=== PATIENT | male | born 1935 | race Caucasian/White ===

== ENCOUNTER 2017-10-22 13:09 | Emergency (ER) | payer MEDICARE, MEDICAID ==
[~2017-10-22] VITALS: Ht 162.6 cm; Wt 70.0 kg
[~2017-10-22 13:09] MED LIST: ASPI-107 PO; GLUC1KIT3 IJ; ISOS5TAB3 PO; LACT10SO PO; LANTUS SQ; MEMA10TA PO; MUPI22OI30 TP; NITR0.4T51 SL; SYN0.1T PO
[2017-10-22] MEDS ORDERED: ondansetron/PF 4mg/2ml inj IV ONE (13:50)
[2017-10-22] MEDS ORDERED: ibuprofen tablet 400 MG TABLET PO ONE (13:50)
[2017-10-22] MEDS ORDERED: normal saline 1000ML IV soln IVB ONE (13:50)
[2017-10-22 14:15] LABS: BASOPHILS % (AUTO) 0.3 % (0-1); EOSINOPHILS # (AUTO) 0.1 X10'3 (0-0.9); EOSINOPHILS % (AUTO) 1.2 % (0-6); HEMATOCRIT 36.1 % (42.0-52.0); HEMOGLOBIN 12.1 g/dl (14.0-17.9); LYMPHOCYTES % (AUTO) 17.6 % (21-51); MEAN CORPUSCULAR HEMOGLOBIN 29.1 PG (27.0-31.0); MEAN CORPUSCULAR HGB CONC 33.6 % (33.0-36.5); MEAN CORPUSCULAR VOLUME 86.7 FL (78-98); MEAN PLATELET VOLUME 9.3 FL (7.4-10.4); MONOCYTES # (AUTO) 0.4 X10'3 (0-0.9); MONOCYTES % (AUTO) 6.4 % (2-12); NEUTROPHILS # (AUTO) 4.4 X10'3 (1.8-7.7); NEUTROPHILS % (AUTO) 74.5 % (42-75); PLATELET COUNT 137 X10'3 (140-440); RED BLOOD COUNT 4.16 X10'6 (4.70-6.10); RED CELL DISTRIBUTION WIDTH 14.3 % (11.5-14.5); WHITE BLOOD COUNT 5.9 X10'3 (4.5-11.0)
[2017-10-22 14:31] LABS: ALANINE AMINOTRANSFERASE 26 U/L (12-78); ALBUMIN 3.6 G/DL (3.4-5.0); ALBUMIN/GLOBULIN RATIO 0.9 (1.1-1.5); ALKALINE PHOSPHATASE 91 IU/L (46-116); ANION GAP 6 (8-16); ASPARTATE AMINO TRANSFERASE 24 U/L (10-37); BILIRUBIN,TOTAL 0.6 MG/DL (0.1-1.0); BLOOD UREA NITROGEN 27 MG/DL (7-18); BUN/CREATININE RATIO 24.3 (5.4-32.0); CHLORIDE 101 MMOL/L (99-107); CREATININE 1.11 MG/DL (0.60-1.10); GLUCOSE 342 MG/DL (70-104); LIPASE 100 U/L (73-393); POTASSIUM 4.6 MMOL/L (3.5-5.1); SODIUM 138 MMOL/L (135-145); TOTAL CARBON DIOXIDE 31.4 MMOL/L (24-32); TOTAL PROTEIN 7.4 G/DL (6.4-8.2); eGFR 63 ML/MIN
[2017-10-22 15:00] VITALS: BP 137/83
[2017-11-04] MEDS ORDERED: HYDR-3972 PO (06:06)
[2017-11-04] MEDS ORDERED: ASPI-41 PO (06:11)
== END 2017-10-22 15:00 | disposition home or self-care (01) ==
LOC: ER 13:10
DX: R07.89 Other chest pain (principal); I25.10 Atherosclerotic heart disease of native coronary artery without angina pectoris; I10 Essential (primary) hypertension; E11.9 Type 2 diabetes mellitus without complications; Z87.891 Personal history of nicotine dependence; Z95.5 Presence of coronary angioplasty implant and graft; Z79.82 Long term (current) use of aspirin; Z79.4 Long term (current) use of insulin; Z79.899 Other long term (current) drug therapy
CPT/HCPCS: 36415; 71010; 80053; 83690; 84484; 85025; 93005; 96361; 96374; 99285; J2405

== ENCOUNTER 2018-05-10 15:31 | Emergency (ER) | payer MEDICARE, MEDICAID ==
[~2018-05-10] VITALS: Ht 170.2 cm; Wt 83.6 kg
[~2018-05-10 15:31] MED LIST changes: +HYDR-3972 PO
[2018-05-10] MEDS ORDERED: BUPIVAcaine 0.5% inj/PF 30 ml vial IJ ONE (16:25)
[2018-05-10 16:28] LABS: BASOPHILS # (AUTO) 0.1 X10'3 (0-0.2); BASOPHILS % (AUTO) 1.2 % (0-1); EOSINOPHILS % (AUTO) 0.2 % (0-6); HEMATOCRIT 32.2 % (42.0-52.0); HEMOGLOBIN 11.2 g/dl (14.0-17.9); LYMPHOCYTES # (AUTO) 0.7 X10'3 (1.1-4.8); LYMPHOCYTES % (AUTO) 14.3 % (21-51); MEAN CORPUSCULAR HEMOGLOBIN 29.9 PG (27.0-31.0); MEAN CORPUSCULAR HGB CONC 34.6 % (33.0-36.5); MEAN CORPUSCULAR VOLUME 86.5 FL (78-98); MEAN PLATELET VOLUME 9.2 FL (7.4-10.4); MONOCYTES # (AUTO) 0.3 X10'3 (0-0.9); NEUTROPHILS # (AUTO) 3.8 X10'3 (1.8-7.7); NEUTROPHILS % (AUTO) 77.3 % (42-75); PLATELET COUNT 119 X10'3 (140-440); RED BLOOD COUNT 3.73 X10'6 (4.70-6.10); RED CELL DISTRIBUTION WIDTH 15.2 % (11.5-14.5); WHITE BLOOD COUNT 4.9 X10'3 (4.5-11.0)
[2018-05-10] MEDS ORDERED: acetaminophen 325mg tablet PO ONE (16:30)
[2018-05-10] MEDS ORDERED: BUPIVAcaine/PF 2.5 mg/ml (0.25%) 30ml vial IJ ONE (16:30)
[2018-05-10 16:41] LABS: ALANINE AMINOTRANSFERASE 18 U/L (12-78); ALBUMIN 3.2 G/DL (3.4-5.0); ALBUMIN/GLOBULIN RATIO 0.9 (1.1-1.5); ALKALINE PHOSPHATASE 71 IU/L (46-116); ANION GAP 8 (8-16); ASPARTATE AMINO TRANSFERASE 20 U/L (10-37); BILIRUBIN,TOTAL 0.7 MG/DL (0.1-1.0); BLOOD UREA NITROGEN 24 MG/DL (7-18); CALCIUM 8.9 MG/DL (8.5-10.1); CHLORIDE 102 MMOL/L (99-107); CREATININE 0.96 MG/DL (0.60-1.10); GLUCOSE 279 MG/DL (70-104); POTASSIUM 4.2 MMOL/L (3.5-5.1); SODIUM 138 MMOL/L (135-145); TOTAL CARBON DIOXIDE 28.5 MMOL/L (24-32); TOTAL PROTEIN 6.6 G/DL (6.4-8.2); eGFR 75 ML/MIN
[2018-05-10] MEDS ORDERED: LIDOcaine 1% 30ml preserv. free vial IJ ONE (16:45)
[2018-05-10] MEDS ORDERED: INSU100I31 (17:02)
[2018-05-10] MEDS ORDERED: LIDOcaine 1%/PF 5ML 10 MG/ML VIAL IJ ONE ×2 (17:20→19:30)
[2018-05-10 17:27] LABS: CLARITY,URINE CLEAR (Clear); COLOR,URINE YELLOW (Yellow); GLUCOSE, URINE >=1000 mg/dl (Neg); KETONES,URINE NEGATIVE (Neg); LEUKOCYTE ESTERASE ,URINE NEGATIVE (Neg); NITRITES, URINE NEGATIVE (Neg); OCCULT BLOOD,URINE TRACE-INTACT (Neg); PH,URINE 5.5 (4.8-8.0); PROTEIN,URINE TRACE mg/dl (Neg); UA COLLECTION TYPE CLN CATCH MIDSTREAM
[2018-05-10 17:29] LABS: BACTERIA,URINE NONE SEEN /HPF (Neg); RBC,URINE NONE SEEN /HPF (0-2); SQUAMOUS EPITHELIAL CELL,UR FEW /LPF (FEW); WBC,URINE 0-4 /HPF (0-4)
[2018-05-10] MEDS ORDERED: TETanus/Pertussis (Acell)/Diphther VAC/PF (Tdap-Adult) 0.5ml syringe IMVAC ONE (20:10)
[2018-05-10 20:28] VITALS: BP 132/86
== END 2018-05-10 20:40 | disposition home or self-care (01) ==
LOC: ER 15:32
DX: S01.81XA Laceration without foreign body of other part of head, initial encounter (principal); S51.812A Laceration without foreign body of left forearm, initial encounter; I25.10 Atherosclerotic heart disease of native coronary artery without angina pectoris; I10 Essential (primary) hypertension; E11.9 Type 2 diabetes mellitus without complications; F03.90 Unspecified dementia, unspecified severity, without behavioral disturbance, psychotic disturbance, mood disturbance, and anxiety; Z98.61 Coronary angioplasty status; Z79.4 Long term (current) use of insulin; Z79.899 Other long term (current) drug therapy; W22.8XXA Striking against or struck by other objects, initial encounter; Y93.89 Activity, other specified; Y92.89 Other specified places as the place of occurrence of the external cause; Y99.8 Other external cause status
CPT/HCPCS: 12015; 36415; 70450; 70486; 72125; 80053; 81001; 82948; 85025; 90471; 90715; 93005; 99285; A6449; J2001; J3490

== ENCOUNTER 2019-08-27 08:02 | Emergency (ER) | payer MEDICARE, MEDICAID ==
[~2019-08-27] VITALS: Ht 175.3 cm; Wt 65.9 kg
[~2019-08-27 08:02] MED LIST changes: -ASPI-107 PO; -HYDR-3972 PO; +INSU100I31; -ISOS5TAB3 PO; -LACT10SO PO; -MUPI22OI30 TP
[2019-08-27] MEDS ORDERED: TETanus/Pertussis (Acell)/Diphther VAC/PF (Tdap-Adult) 0.5ml syringe IM ONE (08:20)
[2019-08-27 09:08] LABS: BASOPHILS % (AUTO) 0.6 % (0-1); EOSINOPHILS % (AUTO) 0.2 % (0-6); HEMATOCRIT 41.1 % (42.0-52.0); HEMOGLOBIN 14.1 g/dl (14.0-17.9); LYMPHOCYTES # (AUTO) 0.7 X10'3 (1.1-4.8); LYMPHOCYTES % (AUTO) 14.1 % (21-51); MEAN CORPUSCULAR HEMOGLOBIN 30.1 PG (27.0-31.0); MEAN CORPUSCULAR HGB CONC 34.4 g/dL (33.0-36.5); MEAN CORPUSCULAR VOLUME 87.4 FL (78-98); MEAN PLATELET VOLUME 9.3 FL (7.4-10.4); MONOCYTES # (AUTO) 0.4 X10'3 (0-0.9); MONOCYTES % (AUTO) 7.7 % (2-12); NEUTROPHILS # (AUTO) 3.9 X10'3 (1.8-7.7); NEUTROPHILS % (AUTO) 77.4 % (42-75); PLATELET COUNT 156 X10'3 (140-440); RED CELL DISTRIBUTION WIDTH 15.4 % (11.5-14.5); WHITE BLOOD COUNT 5.1 X10'3 (4.5-11.0)
[2019-08-27 09:20] LABS: PARTIAL THROMBOPLASTIN TIME 27 SECONDS (22-32)
[2019-08-27 09:46] LABS: ALANINE AMINOTRANSFERASE 23 U/L (12-78); ALBUMIN 3.7 G/DL (3.4-5.0); ALBUMIN/GLOBULIN RATIO 0.9 (1.1-1.5); ALKALINE PHOSPHATASE 63 IU/L (46-116); ANION GAP 7 (8-16); ASPARTATE AMINO TRANSFERASE 25 U/L (10-37); BLOOD UREA NITROGEN 20 MG/DL (7-18); BUN/CREATININE RATIO 25.6 (5.4-32.0); CALCIUM 9.2 MG/DL (8.5-10.1); CHLORIDE 105 MMOL/L (99-107); CREATININE 0.78 MG/DL (0.60-1.10); GLUCOSE 141 MG/DL (70-104); MAGNESIUM 2.1 MG/DL (1.5-2.4); POTASSIUM 3.9 MMOL/L (3.5-5.1); SODIUM 142 MMOL/L (135-145); TOTAL CARBON DIOXIDE 30.1 MMOL/L (24-32); TOTAL PROTEIN 7.6 G/DL (6.4-8.2); eGFR > 90 ML/MIN
[2019-08-27 09:47] LABS: CLARITY,URINE CLEAR (Clear); GLUCOSE, URINE >=1000 mg/dl (Neg); LEUKOCYTE ESTERASE ,URINE NEGATIVE (Neg); NITRITES, URINE NEGATIVE (Neg); OCCULT BLOOD,URINE NEGATIVE (Neg); PROTEIN,URINE NEGATIVE (Neg); UROBILINOGEN,URINE 0.2 E.U/dL (0.2-1.0)
[2019-08-27] MEDS ORDERED: mupirocin 2% ointment 22GM TP STA (09:53)
[2019-08-27 09:57] LABS: COLOR,URINE YELLOW (Yellow); KETONES,URINE NEGATIVE (Neg); PH,URINE 6.5 (4.8-8.0)
[2019-08-27 10:06] LABS: UA COLLECTION TYPE VOIDED
[2019-08-27 10:15] LABS: BACTERIA,URINE NONE SEEN /HPF (Neg); RBC,URINE NONE SEEN /HPF (0-2); SQUAMOUS EPITHELIAL CELL,UR NONE SEEN /LPF (FEW); WBC,URINE 0-4 /HPF (0-4)
[2019-08-27 11:48] VITALS: BP 155/78
== END 2019-08-27 11:50 | disposition home or self-care (01) ==
LOC: ER 08:03
DX: S01.111A Laceration without foreign body of right eyelid and periocular area, initial encounter (principal); S51.011A Laceration without foreign body of right elbow, initial encounter; E11.649 Type 2 diabetes mellitus with hypoglycemia without coma; R00.1 Bradycardia, unspecified; R79.1 Abnormal coagulation profile; F03.90 Unspecified dementia, unspecified severity, without behavioral disturbance, psychotic disturbance, mood disturbance, and anxiety; I25.10 Atherosclerotic heart disease of native coronary artery without angina pectoris; I10 Essential (primary) hypertension; Z79.899 Other long term (current) drug therapy; Z79.4 Long term (current) use of insulin; Z95.5 Presence of coronary angioplasty implant and graft; Z98.890 Other specified postprocedural states; W18.39XA Other fall on same level, initial encounter; Y93.89 Activity, other specified; Y92.89 Other specified places as the place of occurrence of the external cause; Y99.8 Other external cause status
CPT/HCPCS: 36415; 70450; 71045; 80053; 81001; 82948; 83605; 83735; 84145; 84484; 85025; 85610; 85730; 87040; 90471; 93005; 99284

== ENCOUNTER 2019-12-05 18:55 | Inpatient (IN) | payer MEDICARE, MEDICAID ==
[~2019-12-05] VITALS: Ht 170.2 cm; Wt 58.8 kg
--- NOTE | 2019-12-05 19:31 | NUR ---
family at bedside - they state pt has had slow and slurred speech for over a month but it has become worse over past 3 days. they also state that pt is being followed by a journeyman pipefitter for a foot infection and that is what he is on Cipro for.
[2019-12-05] MEDS ORDERED: LEVO150T8 PO (19:45)
[2019-12-05] MEDS ORDERED: EMPA25TA PO (19:45)
[2019-12-05] MEDS ORDERED: CIPR500T5 PO (19:45)
[2019-12-05 19:46] LABS: HEMATOCRIT 42.9 % (42.0-52.0); HEMOGLOBIN 14.3 g/dl (14.0-17.9); MEAN CORPUSCULAR VOLUME 92.8 FL (78-98)
--- NOTE | 2019-12-05 19:46 | NUR ---
Khris [phone] son and daughter-in law - pt resides with them.
[2019-12-05 19:48] LABS: BASOPHILS % (AUTO) 0.6 % (0-1); EOSINOPHILS % (AUTO) 0.1 % (0-6); LYMPHOCYTES # (AUTO) 1.3 X10'3 (1.1-4.8); LYMPHOCYTES % (AUTO) 17.4 % (21-51); MEAN CORPUSCULAR HEMOGLOBIN 30.9 PG (27.0-31.0); MEAN CORPUSCULAR HGB CONC 33.3 g/dL (33.0-36.5); MEAN PLATELET VOLUME 8.9 FL (7.4-10.4); MONOCYTES # (AUTO) 0.4 X10'3 (0-0.9); NEUTROPHILS # (AUTO) 5.6 X10'3 (1.8-7.7); NEUTROPHILS % (AUTO) 76.9 % (42-75); PLATELET COUNT 195 X10'3 (140-440); RED BLOOD COUNT 4.63 X10'6 (4.70-6.10); RED CELL DISTRIBUTION WIDTH 16.1 % (11.5-14.5); WHITE BLOOD COUNT 7.3 X10'3 (4.5-11.0)
--- NOTE | 2019-12-05 20:01 | NUR ---
pt back from [place] - family states slow decline since his fall about 1.5 mos ago (pt was seen here for that event). pt normally ambulates with walker and is able to do own ADL's with minimal assist. For the past 2 days this has not been possible and pt has needed almost full care. pt also has had decrease in appetite.
[2019-12-05 20:13] LABS: ALANINE AMINOTRANSFERASE 29 U/L (12-78); ALBUMIN 3.6 G/DL (3.4-5.0); ALBUMIN/GLOBULIN RATIO 0.9 (1.1-1.5); ALKALINE PHOSPHATASE 129 IU/L (46-116); ANION GAP 28 (8-16); ASPARTATE AMINO TRANSFERASE 35 U/L (10-37); BLOOD UREA NITROGEN 37 MG/DL (7-18); BUN/CREATININE RATIO 27.2 (5.4-32.0); CALCIUM 9.2 MG/DL (8.5-10.1); CHLORIDE 103 MMOL/L (99-107); CREATININE 1.36 MG/DL (0.60-1.10); GLUCOSE 321 MG/DL (70-104); POTASSIUM 4.2 MMOL/L (3.5-5.1); SODIUM 147 MMOL/L (135-145); TOTAL CARBON DIOXIDE 16.5 MMOL/L (24-32); TOTAL PROTEIN 7.8 G/DL (6.4-8.2); eGFR 50 ML/MIN
[2019-12-05] MEDS ORDERED: normal saline 1000ML IV soln IVB ONE (20:15)
[2019-12-05 20:22] LABS: CLARITY,URINE CLEAR (Clear); COLOR,URINE YELLOW (Yellow); GLUCOSE, URINE >=1000 mg/dl (Neg); KETONES,URINE >=80 mg/dl (Neg); LEUKOCYTE ESTERASE ,URINE NEGATIVE (Neg); NITRITES, URINE NEGATIVE (Neg); OCCULT BLOOD,URINE TRACE-INTACT (Neg); PH,URINE 5.5 (4.8-8.0); PROTEIN,URINE NEGATIVE (Neg); UROBILINOGEN,URINE 0.2 E.U/dL (0.2-1.0)
--- NOTE | 2019-12-05 20:38 | NUR ---
FAMILY UPDATED ON PLAN OF CARE - THEY ARE GOING HOME FOR THE NIGHT AND WILL RETURN IN MORNING. CONDOM CATH HAS BEEN PLACED ON PT TO MONITOR I\O - HE IS CURRENTLY GETTING IV FLUID BOLUS - BOTH CULTURES HAVE BEEN DRAWN
[2019-12-05 20:45] LABS: UA COLLECTION TYPE STRAIGHT CATH
[2019-12-05 20:48] LABS: BACTERIA,URINE NONE SEEN /HPF (Neg); RBC,URINE 0-2 /HPF (0-2); SQUAMOUS EPITHELIAL CELL,UR FEW /LPF (FEW); WBC,URINE 0-4 /HPF (0-4)
[2019-12-05] MEDS ORDERED: insulin regular, human 10 units/0.1 ml syringe SQ ONE (21:10)
[2019-12-05 21:24] LABS: CREATINE KINASE 480 U/L (39-308)
--- NOTE | 2019-12-05 21:30 | NUR ---
HOSPITALIST AT BEDSIDE FOR ADMISSION
[2019-12-05] MEDS: normal saline 1000ml 1,000 ML IV SCH (21:41)
[2019-12-05] MEDS ORDERED: acetaminophen 325mg tablet PO PRN (21:45)
[2019-12-05] MEDS ORDERED: insulin regular, human vial - multi-dose IV PRN (21:45)
[2019-12-05] MEDS ORDERED: mag hydrox/Alum hydrox/simeth 30ml oral suspension PO PRN (21:45)
[2019-12-05] MEDS ORDERED: potassium Cl 20 mEq SR tablet PO PRN (21:45)
[2019-12-05] MEDS ORDERED: magnesium hydroxide 30ml (MOM) UD suspension PO PRN (21:45)
[2019-12-05] MEDS ORDERED: ondansetron/PF 4mg/2ml inj IV PRN (21:45)
[2019-12-05] MEDS ORDERED: Insulin Reg/NS 100units/100mL 100 ML IV SCH (21:45)
[2019-12-05] MEDS ORDERED: dextrose 5%-1/2 normal saline 1,000 ML IV ONE (22:19)
[2019-12-05] MEDS ORDERED: insulin regular, human 10 units/0.1 ml syringe SQ STA (23:25)
[2019-12-05 23:26] LABS: TOTAL CELLS COUNTED 100
[2019-12-05 23:27] LABS: ANISOCYTOSIS 1+; PLATELET ESTIMATE NORMAL
--- NOTE | 2019-12-06 | NUR ---
received pt report from Rosalind GORDON RN, had the opportunity to ask questions. awaiting pt arrival to unit.
--- NOTE | 2019-12-06 00:05 | NUR ---
PT HASN'T HAD ANY URINE OUTPUT SINCE STRAIGHT CATH. BLADDER SCAN REVEALS 700ML URINE. TELEPHONE CALL TO [facility] AND ORDER REC'D FOR CHUA CATH -
[2019-12-06 00:30] VITALS: BP 125/60
[2019-12-06 00:50] LABS: ANION GAP 18 (8-16); BLOOD UREA NITROGEN 31 MG/DL (7-18); CHLORIDE 111 MMOL/L (99-107); CREATININE 1.35 MG/DL (0.60-1.10); GLUCOSE 175 MG/DL (70-104); POTASSIUM 3.7 MMOL/L (3.5-5.1); SODIUM 150 MMOL/L (135-145); TOTAL CARBON DIOXIDE 21.3 MMOL/L (24-32)
[2019-12-06 00:51] LABS: ALBUMIN 3.2 G/DL (3.4-5.0); CALCIUM 8.2 MG/DL (8.5-10.1); eGFR 50 ML/MIN
[2019-12-06] MEDS ORDERED: potassium CL 20mEq in D5-1/2NS 1,000 ML IV SCH (02:05)
[2019-12-06 04:04] LABS: ANION GAP 12 (8-16); BLOOD UREA NITROGEN 29 MG/DL (7-18); BUN/CREATININE RATIO 23.8 (5.4-32.0); CALCIUM 8.5 MG/DL (8.5-10.1); CHLORIDE 113 MMOL/L (99-107); CREATININE 1.22 MG/DL (0.60-1.10); GLUCOSE 99 MG/DL (70-104); POTASSIUM 3.5 MMOL/L (3.5-5.1); SODIUM 150 MMOL/L (135-145); eGFR 56 ML/MIN
--- NOTE | 2019-12-06 06:14 | NUR ---
Problems reprioritized. Patient report given, questions answered & plan of care reviewed with Leilani Eason RN.
--- NOTE | 2019-12-06 06:15 | NUR ---
Patient in room PCU 3024. I have received report from ALEJO Rodriguez and had the opportunity to ask questions and assume patient care. patient currently resting in bed, bed locked and low, call light in reach, no acute distress, D5 1/2NS w/20K running at 200ml/hr, insulin off, will continue to monitor.
[2019-12-06 06:51] LABS: BASOPHILS % (AUTO) 0.5 % (0-1); EOSINOPHILS % (AUTO) 0.5 % (0-6); HEMATOCRIT 36.8 % (42.0-52.0); HEMOGLOBIN 12.7 g/dl (14.0-17.9); LYMPHOCYTES # (AUTO) 1.2 X10'3 (1.1-4.8); LYMPHOCYTES % (AUTO) 16.9 % (21-51); MEAN CORPUSCULAR HEMOGLOBIN 31.2 PG (27.0-31.0); MEAN CORPUSCULAR HGB CONC 34.6 g/dL (33.0-36.5); MEAN CORPUSCULAR VOLUME 90.4 FL (78-98); MEAN PLATELET VOLUME 8.5 FL (7.4-10.4); MONOCYTES # (AUTO) 0.7 X10'3 (0-0.9); MONOCYTES % (AUTO) 9.7 % (2-12); NEUTROPHILS % (AUTO) 72.4 % (42-75); PLATELET COUNT 147 X10'3 (140-440); RED BLOOD COUNT 4.07 X10'6 (4.70-6.10); WHITE BLOOD COUNT 6.9 X10'3 (4.5-11.0)
[2019-12-06 06:53] VITALS: BP 105/42
[2019-12-06 07:00] LABS: ALANINE AMINOTRANSFERASE 22 U/L (12-78); ALBUMIN 2.7 G/DL (3.4-5.0); ALBUMIN/GLOBULIN RATIO 0.8 (1.1-1.5); ALKALINE PHOSPHATASE 100 IU/L (46-116); ANION GAP 10 (8-16); ASPARTATE AMINO TRANSFERASE 36 U/L (10-37); BILIRUBIN,TOTAL 0.7 MG/DL (0.1-1.0); BLOOD UREA NITROGEN 27 MG/DL (7-18); BUN/CREATININE RATIO 24.1 (5.4-32.0); CALCIUM 7.9 MG/DL (8.5-10.1); CHLORIDE 113 MMOL/L (99-107); CREATININE 1.12 MG/DL (0.60-1.10); GLUCOSE 80 MG/DL (70-104); PHOSPHORUS 1.9 MG/DL (2.3-4.5); POTASSIUM 3.7 MMOL/L (3.5-5.1); SODIUM 149 MMOL/L (135-145); TOTAL CARBON DIOXIDE 26.5 MMOL/L (24-32); TOTAL PROTEIN 6.1 G/DL (6.4-8.2); eGFR 62 ML/MIN
[2019-12-06] MEDS: normal saline 1000ml 1,000 ML IV SCH (07:41)
[2019-12-06] MEDS: ciprofloxacin 250mg tablet PO SCH ×2 (07:48→21:38)
[2019-12-06] MEDS: levoTHYROXINE 75mcg tablet PO SCH (07:48)
[2019-12-06] MEDS: heparin, porcine 5000 units/ml vial SQ SCH ×2 (07:49→21:38)
[2019-12-06] MEDS: K and/or MAG REPLACEMENT MC SCH ×2 (08:20→20:00)
--- NOTE | 2019-12-06 08:24 | NUR ---
PAGER ID: [phone] MESSAGE: ALEJO Duke, ext [phone], [phone], Louie, Leticia is 149, do you still want patient to get NS@100? Drips stopped and patient eating per DKA protocol, fyi BG low this morning@68, insulin drip stopped before subq started.
[2019-12-06] MEDS ORDERED: dextrose 50%-water 50ml dispensing syringe IV PRN ×2 (08:35)
[2019-12-06] MEDS ORDERED: MESSAGE TO PHARMACY PO ONE (08:35)
[2019-12-06] MEDS ORDERED: dextrose ORAL solution 15 GM/59 ML bottle PO PRN ×2 (08:35)
[2019-12-06] MEDS ORDERED: glucagon, human recombinant 1mg kit SUBCUT PRN (08:35)
[2019-12-06] MEDS: insulin Lispro (HumaLOG) vial - multi-dose SQ SCH ×3 (08:53→18:03)
[2019-12-06 09:32] LABS: ALBUMIN 2.9 G/DL (3.4-5.0); ANION GAP 6 (8-16); BLOOD UREA NITROGEN 26 MG/DL (7-18); BUN/CREATININE RATIO 24.3 (5.4-32.0); CALCIUM 7.9 MG/DL (8.5-10.1); CHLORIDE 112 MMOL/L (99-107); CREATININE 1.07 MG/DL (0.60-1.10); GLUCOSE 155 MG/DL (70-104); PHOSPHORUS 2.1 MG/DL (2.3-4.5); POTASSIUM 3.9 MMOL/L (3.5-5.1); SODIUM 146 MMOL/L (135-145); TOTAL CARBON DIOXIDE 27.6 MMOL/L (24-32); eGFR 66 ML/MIN
[2019-12-06 11:00] VITALS: BP 136/52
[2019-12-06 15:00] VITALS: BP 98/52
--- NOTE | 2019-12-06 17:07 | NUR ---
DM/Malnutrition consults: Pt admit w/ DKA, dehydration, metabolic acidosis. DKA possibly side effect of Jardiance and now resolved off insulin drip per MD. Pt hx dementia, DM, CHF, AOx1 advanced to pureed/thin/carb controlled diet w/ feeder required per MD/MICROBIOLOGY ANALYST. PO 100% first carb controlled meals, no edema/wounds, potentially 3kg loss since July 5% UBW loss 4 months not significant. Pt does not meet minimum malnutrition criteria at this time. Pt A1C pending currently; last documented 10.6 in 2017. Pt is not appropriate for DM ed given hx. Will continue to monitor. Rec: 1. continue carb controlled/pureed/thin diet per MD/MICROBIOLOGY ANALYST 2. monitor for ONS needs this admit 3. bowel care as needed 4. weekly wts Addendum: 12/06/19 at [address] Amended: Links added. Addendum: 12/06/19 at [address] DM/Malnutrition consults: Pt admit w/ DKA, dehydration, metabolic acidosis. DKA possibly side effect of Jardiance and now resolved off insulin drip per MD. Pt hx dementia, DM, CHF, AOx1 advanced to pureed/thin/carb controlled diet w/ feeder required per MD/MICROBIOLOGY ANALYST. PO 100% first carb controlled meals, no edema/wounds, potentially 3kg loss since July 5% UBW loss 4 months not significant. Pt does not meet minimum malnutrition criteria at this time. Pt A1C pending currently; last documented 10.6 in 2017. Pt is not appropriate for DM ed given hx. Will continue to monitor. Rec: 1. continue carb controlled/pureed/thin diet w/ feeder per MD/MICROBIOLOGY ANALYST 2. monitor for ONS needs this admit 3. bowel care as needed 4. weekly wts
--- NOTE | 2019-12-06 18:31 | NUR ---
Problems reprioritized. Patient report given, questions answered & plan of care reviewed with ALEJO Rodriguez. Addendum: 12/06/19 at 1831 by Leilani Page RN report given to ALEJO Reese
[2019-12-06 19:00] VITALS: BP 114/50
[2019-12-06] MEDS ORDERED: insulin glargine (Lantus) pen - multi-dose SQ SCH (21:00)
[2019-12-06 23:00] VITALS: BP 114/51
[2019-12-07 03:00] VITALS: BP 123/39
[2019-12-07 05:01] LABS: BASOPHILS # (AUTO) 0.1 X10'3 (0-0.2); EOSINOPHILS % (AUTO) 0.5 % (0-6); HEMATOCRIT 38.1 % (42.0-52.0); HEMOGLOBIN 13.2 g/dl (14.0-17.9); LYMPHOCYTES # (AUTO) 0.9 X10'3 (1.1-4.8); MEAN CORPUSCULAR HGB CONC 34.5 g/dL (33.0-36.5); MEAN CORPUSCULAR VOLUME 89.8 FL (78-98); MEAN PLATELET VOLUME 8.5 FL (7.4-10.4); MONOCYTES # (AUTO) 0.5 X10'3 (0-0.9); MONOCYTES % (AUTO) 6.8 % (2-12); NEUTROPHILS # (AUTO) 5.7 X10'3 (1.8-7.7); NEUTROPHILS % (AUTO) 78.7 % (42-75); PLATELET COUNT 132 X10'3 (140-440); RED BLOOD COUNT 4.25 X10'6 (4.70-6.10); RED CELL DISTRIBUTION WIDTH 15.3 % (11.5-14.5); WHITE BLOOD COUNT 7.3 X10'3 (4.5-11.0)
[2019-12-07 05:35] LABS: ALANINE AMINOTRANSFERASE 25 U/L (12-78); ALBUMIN 2.7 G/DL (3.4-5.0); ALBUMIN/GLOBULIN RATIO 0.8 (1.1-1.5); ALKALINE PHOSPHATASE 101 IU/L (46-116); ANION GAP 6 (8-16); ASPARTATE AMINO TRANSFERASE 34 U/L (10-37); BILIRUBIN,TOTAL 0.6 MG/DL (0.1-1.0); BLOOD UREA NITROGEN 19 MG/DL (7-18); BUN/CREATININE RATIO 23.2 (5.4-32.0); CALCIUM 8.7 MG/DL (8.5-10.1); CHLORIDE 112 MMOL/L (99-107); CREATININE 0.82 MG/DL (0.60-1.10); GLUCOSE 147 MG/DL (70-104); POTASSIUM 3.2 MMOL/L (3.5-5.1); SODIUM 149 MMOL/L (135-145); TOTAL CARBON DIOXIDE 31.1 MMOL/L (24-32); TOTAL PROTEIN 6.1 G/DL (6.4-8.2); eGFR 89 ML/MIN
--- NOTE | 2019-12-07 05:59 | NUR ---
Problems reprioritized. Patient report given, questions answered & plan of care reviewed with ALEJO Duke.
[2019-12-07 06:00] VITALS: BP 119/50
--- NOTE | 2019-12-07 06:04 | NUR ---
Patient in room PCU 3024. I have received report from ALEJO Reese and had the opportunity to ask questions and assume patient care. patient currently resting in bed, bed locked and low, call light in reach, no acute distress, will continue to monitor.
--- NOTE | 2019-12-07 07:05 | NUR ---
PAGER ID: [phone] MESSAGE: ALEJO Duke, ext [phone], [phone], [place], patient reports severe anxiety, "no sleep for days" , states he is bipolar, requests help with mental health. Social service consult ordered.
[2019-12-07] MEDS: levoTHYROXINE 75mcg tablet PO SCH (08:03)
[2019-12-07] MEDS: potassium Cl 20 mEq SR tablet PO PRN ×2 (08:03→13:04)
[2019-12-07] MEDS: ciprofloxacin 250mg tablet PO SCH (08:03)
[2019-12-07] MEDS: insulin Lispro (HumaLOG) vial - multi-dose SQ SCH ×2 (08:03→13:07)
[2019-12-07] MEDS: heparin, porcine 5000 units/ml vial SQ SCH (08:04)
[2019-12-07] MEDS: K and/or MAG REPLACEMENT MC SCH (08:07)
[2019-12-07 11:43] VITALS: BP 106/56
--- NOTE | 2019-12-07 13:30 | NUR ---
Received orders for patient discharge to home with family caregivers. Patient made ready for discharge, clothing put on, IV removed, catheter tip intact, hemostasis achieved, asif removed, discharge wound pictures taken, patient able to urinate, family educated on DM management and provided with DM survival skills, instructed to follow up with patient's toll repairer central office as soon as possible to make necessary adjustments to medications. Patient taken to family vehicle via wheelchair and assisted into vehicle. Stable at time of discharge.
== END 2019-12-07 13:43 | disposition home or self-care (01) | DRG 637 ==
LOC: ER 18:55 → ED HOLD 21:41 → EDBEDREQ 23:34 → ED HOLD 23:59 → PCU 3S 12-06 00:20
PROVIDERS: ADMIT Internal Medicine; ATTEND Internal Medicine
DX: E11.10 Type 2 diabetes mellitus with ketoacidosis without coma (principal); G93.41 Metabolic encephalopathy; E03.9 Hypothyroidism, unspecified; F03.90 Unspecified dementia, unspecified severity, without behavioral disturbance, psychotic disturbance, mood disturbance, and anxiety; E86.0 Dehydration; I11.0 Hypertensive heart disease with heart failure; Z96.611 Presence of right artificial shoulder joint; Z96.641 Presence of right artificial hip joint; R29.6 Repeated falls; I25.10 Atherosclerotic heart disease of native coronary artery without angina pectoris; I50.9 Heart failure, unspecified; R32 Unspecified urinary incontinence; Z79.84 Long term (current) use of oral hypoglycemic drugs; Z91.81 History of falling; Z98.61 Coronary angioplasty status
CPT/HCPCS: 36415; 70450; 80048; 80053; 80329; 81001; 82009; 82140; 82550; 82948; 83036; 83605; 83880; 84100; 84145; 85025; 87081; 92508; 92616; 93005; 96360; 97116; 97161; 97530; 99285; G0378; J1644; J1815; J3480; J7030

== ENCOUNTER 2020-06-02 07:55 | Emergency (ER) | payer MEDICARE, MEDICAID ==
[~2020-06-02] VITALS: Ht 177.8 cm; Wt 69.0 kg
[~2020-06-02 07:55] MED LIST changes: -GLUC1KIT3 IJ; -INSU100I31; +INSU100V13 SQ; -LANTUS SQ; +LEVO150T8 PO; -MEMA10TA PO; -NITR0.4T51 SL; -SYN0.1T PO
[2020-06-02] MEDS ORDERED: normal saline 1000ml 1,000 ML IV ONE (08:18)
--- NOTE | 2020-06-02 08:38 | NUR ---
BIB EMS WITH FAMILY CONCERN THAT PATIENT WAS DIFFICULT TO AROUSE THIS MORNING. ALERT AT PRESENT. ORIENTED TO SELF. HX DEMENTIA. COOPERATIVE WITH CARE.
--- NOTE | 2020-06-02 09:30 | NUR ---
TC FROM [facility] CONTACT NUMBER [phone].
[2020-06-02 10:14] LABS: BASOPHILS % (AUTO) 0.5 % (0-1); EOSINOPHILS # (AUTO) 0.1 X10'3 (0-0.9); EOSINOPHILS % (AUTO) 0.8 % (0-6); HEMATOCRIT 35.9 % (42.0-52.0); HEMOGLOBIN 12.1 g/dl (14.0-17.9); LYMPHOCYTES # (AUTO) 1.5 X10'3 (1.1-4.8); LYMPHOCYTES % (AUTO) 18.8 % (21-51); MEAN CORPUSCULAR HEMOGLOBIN 29.3 PG (27.0-31.0); MEAN CORPUSCULAR HGB CONC 33.8 g/dL (33.0-36.5); MEAN CORPUSCULAR VOLUME 86.8 FL (78-98); MEAN PLATELET VOLUME 8.3 FL (7.4-10.4); MONOCYTES # (AUTO) 0.6 X10'3 (0-0.9); MONOCYTES % (AUTO) 7.1 % (2-12); NEUTROPHILS # (AUTO) 5.9 X10'3 (1.8-7.7); NEUTROPHILS % (AUTO) 72.8 % (42-75); PLATELET COUNT 192 X10'3 (140-440); RED BLOOD COUNT 4.14 X10'6 (4.70-6.10); RED CELL DISTRIBUTION WIDTH 15.5 % (11.5-14.5); WHITE BLOOD COUNT 8.1 X10'3 (4.5-11.0)
[2020-06-02 10:31] LABS: ALANINE AMINOTRANSFERASE 12 U/L (12-78); ALBUMIN 2.5 G/DL (3.4-5.0); ALBUMIN/GLOBULIN RATIO 0.6 (1.1-1.5); ALKALINE PHOSPHATASE 71 IU/L (46-116); ANION GAP 2 (8-16); ASPARTATE AMINO TRANSFERASE 14 U/L (10-37); BILIRUBIN,TOTAL 0.7 MG/DL (0.1-1.0); BLOOD UREA NITROGEN 15 MG/DL (7-18); BUN/CREATININE RATIO 21.1 (5.4-32.0); CALCIUM 8.6 MG/DL (8.5-10.1); CHLORIDE 104 MMOL/L (99-107); CREATININE 0.71 MG/DL (0.60-1.10); GLUCOSE 164 MG/DL (70-104); SODIUM 138 MMOL/L (135-145); eGFR > 90 ML/MIN
--- NOTE | 2020-06-02 12:36 | NUR ---
ATTEMPTED TO CONTACT SONJACQUES, TO INFORM OF DISCHARGE STATUS. UNABLE TO LEAVE MESSAGE ON PHONE (MAILBOX FULL).
[2020-06-02 13:00] VITALS: BP 122/61
== END 2020-06-02 14:22 | disposition home or self-care (01) ==
LOC: ER 07:55
DX: E86.0 Dehydration (principal); F03.90 Unspecified dementia, unspecified severity, without behavioral disturbance, psychotic disturbance, mood disturbance, and anxiety; E11.65 Type 2 diabetes mellitus with hyperglycemia; I25.10 Atherosclerotic heart disease of native coronary artery without angina pectoris; I10 Essential (primary) hypertension; R41.0 Disorientation, unspecified; Z98.61 Coronary angioplasty status; Z98.890 Other specified postprocedural states; Z79.899 Other long term (current) drug therapy; Z79.4 Long term (current) use of insulin
CPT/HCPCS: 36415; 80053; 82948; 85025; 96360; 96361; 99285; J7030; 99284